=== PATIENT | female | born 1995 | race Caucasian/White ===

== ENCOUNTER 2018-09-02 21:07 | Emergency (ER) | payer BC ==
[2018-09-02 21:13] VITALS: BP 131/77; RESP 18; TEMP 98.3
--- NOTE | 2018-09-02 21:45 | ED ---
URI HPI - General Chief Complaint: Upper Respiratory Infection Stated Complaint: CARLOS Time Seen by Provider: 09/02/18 21:16 Source: patient Mode of arrival: ambulatory Limitations: no limitations - History of Present Illness MD Complaint: cough, nasal congestion, other (Chest tightness) -: days(s) Severity: moderate Quality: other (Diagnosis) Consistency: constant Improves With: nothing Worsens With: nothing Associated Symptoms: nasal congestion, cough, chest pain, shortness of breath Treatments Prior to Arrival: none - Related Data Home Medications Medication Instructions Recorded Confirmed Acetaminophen [Tylenol] 500 mg PO Q4-6H PRN 09/02/18 09/02/18 Pnv,Calcium 72/Iron/Folic Acid 1 tab PO DAILY 09/02/18 09/02/18 [ Plus Tablet] Previous Rx's Medication Instructions Recorded Albuterol Inhaler [Ventolin Hfa 1 - 2 puff INHALATION Q6HR PRN #1 09/02/18 Inhaler] inhaler Allergies Allergy/AdvReac Type Severity Reaction Status Date / Time No Known Allergies Allergy Verified 09/02/18 21:36 Review of Systems ROS Statement: Those systems with pertinent positive or pertinent negative responses have been documented in the HPI. ROS Other: All systems not noted in ROS Statement are negative. Constitutional: Denies: fever, chills Eyes: Denies: eye pain ENT: Reports: congestion. Denies: ear pain Respiratory: Reports: cough, wheezes Cardiovascular: Denies: chest pain, palpitations, edema, syncope Gastrointestinal: Denies: abdominal pain, vomiting, diarrhea Genitourinary: Denies: dysuria, hematuria Skin: Denies: rash Neurological: Denies: headache, weakness, numbness Past Medical History Past Medical History: No Reported History History of Any Multi-Drug Resistant Organisms: None Reported Past Surgical History: No Surgical Hx Reported Past Psychological History: No Psychological Hx Reported Smoking Status: Never smoker Past Alcohol Use History: None Reported Past Drug Use History: None Reported General Exam Limitations: no limitations General appearance: alert, in no apparent distress Head exam: Present: atraumatic, normocephalic Eye exam: Present: normal appearance. Absent: scleral icterus, conjunctival injection ENT exam: Present: normal oropharynx, TM's normal bilaterally Neck exam: Present: normal inspection, full ROM. Absent: meningismus, lymphadenopathy Respiratory exam: Present: wheezes. Absent: respiratory distress, rales, rhonchi, stridor Cardiovascular Exam: Present: regular rate (Rate is 96 at my exam), normal rhythm, normal heart sounds. Absent: systolic murmur, diastolic murmur, rubs, gallop GI/Abdominal exam: Present: soft. Absent: tenderness, guarding, rebound, mass Extremities exam: Present: normal inspection, normal capillary refill. Absent: pedal edema, calf tenderness Skin exam: Present: warm, dry, intact, normal color. Absent: rash Course Vital Signs 09/02/18 09/02/18 09/02/18 21:10 22:07 22:19 Temperature 98.3 F Pulse Rate 111 H 102 H 115 H Respiratory 18 Rate Blood Pressure 131/77 O2 Sat by Pulse 98 Oximetry Disposition Clinical Impression: Upper respiratory infection, Reactive airway disease Disposition: HOME SELF-CARE Condition: Good Instructions: Upper Respiratory Infection (ED), Reactive Airways Disease (ED) Prescriptions: Albuterol Inhaler [Ventolin Hfa Inhaler] 1 - 2 puff INHALATION Q6HR PRN #1 inhaler PRN Reason: Wheezing Is patient prescribed a controlled substance at d/c from ED?: No Referrals: Otilio Webber MD [Primary Care Provider] - 1-2 days
[2018-09-02] MEDS ORDERED: ALBUTEROL NEBULIZED 2.5 MG/3 ML INHALATION STA ×2 (21:50→22:26)
[2018-09-02 22:20] VITALS: PULSE 115
== END 2018-09-02 22:56 | disposition home or self-care (01) ==
LOC: EC 21:07
DX: O99.511 Diseases of the respiratory system complicating pregnancy, first trimester (principal); J45.909 Unspecified asthma, uncomplicated; J06.9 Acute upper respiratory infection, unspecified; Z3A.09 9 weeks gestation of pregnancy
CPT/HCPCS: 94640; 99284

== ENCOUNTER 2019-04-02 19:58 | Inpatient (IN) | payer BC, OTHER ==
[2019-04-02] MEDS ORDERED: METHYLERGONOVINE 0.2 MG/ML 1 ML AMP IM PRN (20:38)
[2019-04-02] MEDS ORDERED: CARBOPROST TROMETHAMINE 250 MCG/ML 1 ML AMP IM PRN (20:38)
[2019-04-02] MEDS ORDERED: TERBUTALINE 1 MG/ML VIAL SQ PRN (20:38)
[2019-04-02] MEDS ORDERED: LIDOCAINE 0.5% (PF) 5 MG/ML (50 ML SDV) SQ PRN (20:38)
[2019-04-02] MEDS ORDERED: OXYTOCIN 10 UNIT/ML 1 ML VIAL IM PRN (20:38)
[2019-04-02] MEDS ORDERED: LACTATED RINGERS 1,000 ML IV SCH (20:45)
[2019-04-02 21:07] VITALS: RESP 16; BMI 28.0
[2019-04-02] MEDS: LACTATED RINGERS 1,000 ML IV SCH (21:45)
[2019-04-02 22:02] LABS: Basophils % (A) 0 %; Eosinophils # (A) 0.2 k/uL (0-0.7); Eosinophils % (A) 2 %; HCT 35.4 % (34.0-46.0); HGB 11.7 gm/dL (11.4-16.0); Lymphocytes # (A) 0.9 k/uL (1.0-4.8); Lymphocytes % (A) 8 %; MCH 30.5 pg (25.0-35.0); MCHC 33.1 g/dL (31.0-37.0); MCV 92.4 fL (80.0-100.0); Monocytes # (A) 0.8 k/uL (0-1.0); Monocytes % (A) 7 %; Neutrophils # (A) 9.1 k/uL (1.3-7.7); Neutrophils % (A) 81 %; Platelet Count 264 k/uL (150-450); RBC 3.83 m/uL (3.80-5.40); RDW 13.5 % (11.5-15.5); WBC 11.3 k/uL (3.8-10.6)
[2019-04-03] MEDS: BUTORPHANOL 1 MG/ML 1 ML VIAL IV PRN ×2 (00:38→03:35)
[2019-04-03] MEDS: LACTATED RINGERS 1,000 ML IV SCH ×2 (04:56→19:49)
[2019-04-03] MEDS ORDERED: AMPICILLIN 2,000 MG in SODIUM CHLORIDE 0.9% 100 ML IVPB STA (06:04)
[2019-04-03] MEDS ORDERED: OXYTOCIN 30 UNITS/500 ML NS 30 UNIT in SALINE 1 500ML.BAG IV SCH (06:15)
[2019-04-03] MEDS ORDERED: SODIUM CHLORIDE 0.9% 100 ML BAG ONE (07:39)
[2019-04-03] MEDS ORDERED: fentaNYL (PF) 50 MCG/ML 5 ML AMP ONE (07:39)
[2019-04-03] MEDS ORDERED: ROPIVACAINE 5MG/ML 20ML VIAL ONE (07:39)
--- NOTE | 2019-04-03 08:13 | P.HPOB ---
History of Present Illness H&P Date: 04/03/19 Chief Complaint: IUP @ 39 4/7 weeks, labor This is a 24-year-old 1 para 0 at 39-4/7 weeks with an estimated due date of 04/06/19 based on last menstrual period equal to a 19 week ultrasound. Patient has been receiving routine care with Dr. Wilson. She pre sented to labor and delivery last evening with complaints of contractions every 2 minutes. Patient denied loss of fluid but noted mucousy discharge yesterday. Patient noted good movement and denied vaginal bleeding. On blood work she had a blood type of A-, rubella was noted to be nonimmune, RPR nonreactive, hepatitis B surface antigen negative, HIV negative, she did pass her 1 hour Glucola received T On 02/10/19 receive program on 01/13/19 group beta strep was negative on 03/03/19. Review of Systems Constitutional: Denies chills, Denies fatigue, Denies fever Ears, nose, mouth and throat: Denies headache Cardiovascular: Reports edema Respiratory: Denies dyspnea Gastrointestinal: Denies nausea, Denies vomiting Genitourinary: Reports Past Medical History Past Medical History: No Reported History History of Any Multi-Drug Resistant Organisms: None Reported Past Surgical History: No Surgical Hx Reported Additional Past Surgical History / Comment(s): [place] teeth Past Anesthesia/Blood Transfusion Reactions: No Reported Reaction Past Psychological History: No Psychological Hx Reported Smoking Status: Never smoker Past Alcohol Use History: None Reported Past Drug Use History: None Reported - Past Family History Mother Family Medical History: Blood Disorder Additional [facility] / Comment([facility] Medications and Allergies Home Medications Medication Instructions Recorded Confirmed Type Pnv,Calcium 72/Iron/Folic Acid 1 tab PO DAILY 09/02/18 04/02/19 History [ Plus Tablet] Allergies Allergy/AdvReac Type Severity Reaction Status Date / Time No Known Allergies Allergy Verified 09/02/18 21:36 Exam Osteopathic Statement: *. No significant issues noted on an osteopathic structural exam other than those noted in the History and Physical/Consult. Vital Signs Temp Pulse Resp BP Pulse Ox 04/02/19 21:01 96.5 F L 112 H 16 131/89 98 04/02/19 20:33 96.5 F L 112 H 16 131/89 98 Intake and Output 04/02/19 04/03/19 04/03/19 22:59 06:59 14:59 Intake Total 1000 Balance 1000 Intake: IV 1000 Lactated Ringers 1,000 ml 1000 @ 125 mls/hr IV .Q8H [facility] Rx#:[id number] Other: # Voids 1 1 Weight 88.587 kg Targeted physical exam was performed on this date in general this is a well- nourished well-developed female in no acute distress, she exhibits non- labored breathing, lungs are clear to auscultation. Heart is known to have a regular rate and rhythm, her abdomen is noted to be gravid and appropriate for gestational age, and cervical exam she was 6/100/-2 with a bulging bag of water, amniotomy was performed and clear fluid was obtained. heart tones were noted to be category 1 and she was selene every 5 minutes. Results Result Diagrams: 04/02/19 21:46 Abnormal Lab Results - Last 24 Hours (Table) 04/02/19 Range/Units 21:46 WBC 11.3 H (3.8-10.6) k/uL Neutrophils # 9.1 H (1.3-7.7) k/uL Lymphocytes # 0.9 L (1.0-4.8) k/uL Assessment and Plan (1) Term Current Visit: Yes Status: Acute Code(s): Z34.90 - ENCNTR FOR SUPRVSN OF NORMAL , UNSP, UNSP TRIMESTER SNOMED Code(s): 91829587 (2) Active labor at term Current Visit: Yes Status: Acute Code(s): QGM9773 - SNOMED Code(s): 65154815 (3) Rubella non-immune status, antepartum Current Visit: Yes Status: Acute Code(s): O99.89 - OTH DISEASES AND CO NDITIONS COMPL PREG/CHLDBRTH; Z28.3 - UNDERIMMUNIZATION STATUS SNOMED Code(s): 363403957 (4) Rh negative state in antepartum period Current Visit: Yes Status: Acute Code(s): O26.899 - OTH RELATED CONDITIONS, UNSPECIFIED TRIMESTER; Z67.91 - UNSPECIFIED BLOOD TYPE, RH NEGATIVE SNOMED Code(s): 920172121 Plan: Patient is admitted to labor and delivery, Pitocin augmentation of labor was begun and amniotomy was performed as stated above. Patient will receive MMR post and rhogam as indicated by cord blood. Anticipate spontaneous vaginal delivery later this morning.
[2019-04-03] MEDS ORDERED: AMPICILLIN 1,000 MG in SODIUM CHLORIDE 0.9% 50 ML IVPB SCH (10:00)
[2019-04-03] MEDS ORDERED: ZOLPIDEM 5 MG TAB PO PRN (11:01)
[2019-04-03] MEDS ORDERED: BENZOCAINE/MENTHOL SPRAY 1 GM/SPRAY AEROSOL TOPICAL PRN (11:01)
[2019-04-03] MEDS ORDERED: WITCH HAZEL 1 EACH MED..PAD TOPICAL PRN (11:01)
[2019-04-03] MEDS ORDERED: HYDROcodone/APAP 5-325MG 1 EACH TAB PO PRN (11:01)
[2019-04-03] MEDS ORDERED: diphenhydrAMINE 50 MG CAP PO PRN (11:01)
[2019-04-03] MEDS ORDERED: HYDROCORTISONE 2.5% RECTAL CREAM 30 GM TUBE RECTAL PRN (11:01)
[2019-04-03] MEDS ORDERED: IBUPROFEN 600 MG TAB PO PRN (11:01)
[2019-04-03] MEDS ORDERED: diphenhydrAMINE 25 MG CAP PO PRN (11:01)
[2019-04-03] MEDS ORDERED: diphenhydrAMINE 50 MG/ML 1 ML VIAL IVP PRN ×2 (11:01)
[2019-04-03] MEDS ORDERED: SIMETHICONE 80 MG CHEWABLE PO PRN (11:01)
[2019-04-03] MEDS ORDERED: LANOLIN CREAM 5 GM TUBE TOPICAL PRN (11:01)
[2019-04-03] MEDS ORDERED: ACETAMINOPHEN TAB 325 MG TAB PO PRN (11:01)
--- NOTE | 2019-04-03 11:06 | P.PROBDLV ---
Vaginal Delivery Note - . Vaginal Delivery Note: This is a pleasant 24-year-old 1 para 0 that presented to labor and delivery in active labor at 39-4/7 weeks. Patient was admitted to labor and delivery made minimal progress over the evening therefore Pitocin augmentation of labor was begun. Patient was noted to have a family positive amnio sure upon admission in addition. Pitocin augmentation of labor was begun and amniotomy was performed clear fluid was obtained she progressed to 6 cm by this time. Pat ient request epidural which was placed without difficulty by the anesthesia department. Patient progressed to complete began pushing and had a normal spontaneous vaginal delivery of a viable female infant (sam) at 1040, loose nuchal was noted at delivery and this was delivered through. Weight of 7 lbs. 15 oz. with Apgars of 8 and 9 at one and 5 minutes respectively. After a two- minute delayed the vocal cord is then doubly clamped and cut. The placenta was then delivered spontaneously intact with a three-vessel cord being noted. A red rubber catheter was used to drain the bladder of approximately 150 mL of clear yellow urine. The uterus was noted to be firm and below the lump umbilicus at this time. Estimated blood loss 300 mL. Inspection the patient's vaginal vault a second-degree midline vaginal laceration was noted this was repaired in the usual fashion with 3-0 Rapide. A right labial laceration was noted very superficial this was not repaired and it was not bleeding. Patient and tolerated delivery well and are resting comfortably.
[2019-04-03] MEDS ORDERED: OXYTOCIN 20 UNITS/1000 ML NS 1,000 ML IV SCH (11:15)
[2019-04-03] MEDS ORDERED: MEASLES-MUMPS-RUBELLA VACC/PF 12,500 UNIT/0.5 ML VIAL SQ ONE (19:48)
[2019-04-03] MEDS: SENNOSIDES-DOCUSATE SODIUM 1 EACH TAB PO SCH ×2 (20:32→20:42)
--- NOTE | 2019-04-04 07:56 | P.DS ---
Providers Date of admission: 04/02/19 20:31 Expected date of discharge: 04/04/19 Attending physician: Nikko Wilson Primary care physician: Stated None - Discharge Diagnosis(es) (1) Term Current Visit: Yes Status: Acute (2) Active labor at term Current Visit: Yes Status: Acute (3) Rubella non-immune status, antepartum Current Visit: Yes Status: Acute (4) Rh negative state in antepartum period Current Visit: Yes Status: Acute (5) Status post vaginal delivery Current Visit: Yes Status: Acute Hospital Course: This is a pleasant 24-year-old 1 para 0 that presented to labor and delivery with regular strong contractions at 39-4/7 weeks. Patient was admitted patient made minimal progress and Pitocin augmentation of labor was begun. Patient underwent artificial rupture of membranes progressed quickly to complete began pushing and had a normal spontaneous vaginal delivery of a viable female at 1040, ([place]) a loose nuchal is noted at delivery and this was delivered through without difficulty. Weight of the 7 lbs. 15 oz. with Apgars of 8 and 9 at one and 5 minutes respectively. Patient did sustain a second-degree midline vaginal laceration that was repaired in the usual fashion with 3-0 Rapide. Patient's course has been uneventful. On this day #1 she is ambulating and voiding without difficulty. She is tolerating a regular diet without nausea or vomiting. She denies any concerns and does wish discharge home at 24 hours. She is bottle feeding in addition. Patient Condition at Discharge: Good Plan - Discharge Summary New Discharge Prescriptions: No Action Pnv,Calcium 72/Iron/Folic Acid [ Plus Tablet] 1 tab PO DAILY Discharge Medication List Pnv,Calcium 72/Iron/Folic Acid [ Plus Tablet] 1 tab PO DAILY 09/02/18 [History] Follow up Appointment(s)/Referral(s): Nikko Wilson MD [STAFF PHYSICIAN] - 6 Weeks Patient Instructions/Handouts: Vaginal Delivery (DC), Vaginal Delivery (GEN) Discharge Disposition: HOME SELF-CARE
[2019-04-04] MEDS: SENNOSIDES-DOCUSATE SODIUM 1 EACH TAB PO SCH (08:56)
[2019-04-04 08:57] VITALS: BP 114/63; PULSE 85; TEMP 97.6
[2019-04-04 08:57] LABS: Basophils # (A) 0.1 k/uL (0-0.2); Basophils % (A) 0 %; Eosinophils # (A) 0.3 k/uL (0-0.7); Eosinophils % (A) 2 %; HCT 30.8 % (34.0-46.0); HGB 10.2 gm/dL (11.4-16.0); Lymphocytes # (A) 1.6 k/uL (1.0-4.8); Lymphocytes % (A) 13 %; MCH 31.1 pg (25.0-35.0); MCHC 32.9 g/dL (31.0-37.0); MCV 94.4 fL (80.0-100.0); Mean Platelet Volume 7.6; Monocytes # (A) 0.7 k/uL (0-1.0); Monocytes % (A) 5 %; Neutrophils # (A) 9.6 k/uL (1.3-7.7); Neutrophils % (A) 77 %; Platelet Count 226 k/uL (150-450); RBC 3.27 m/uL (3.80-5.40); RDW 14.1 % (11.5-15.5); WBC 12.5 k/uL (3.8-10.6)
[2019-04-04] MEDS ORDERED: PRENATAL VIT-IRON-FOLIC ACID 1 EACH CAP PO SCH (09:00)
== END 2019-04-04 15:20 | disposition home or self-care (01) | DRG 807 ==
LOC: FBPOP 19:58 → 4FBP 20:31
PROVIDERS: ADMIT Obstetrics & Gynecology Obstetrics; ATTEND Obstetrics & Gynecology
PROC: 10E0XZZ Delivery of Products of Conception, External Approach (ICD-10-PCS; principal; 2019-04-03)
PROC: 0KQM0ZZ Repair Perineum Muscle, Open Approach (ICD-10-PCS; 2019-04-03)
PROC: 3E0134Z Introduction of Serum, Toxoid and Vaccine into Subcutaneous Tissue, Percutaneous Approach (ICD-10-PCS; 2019-04-03)
PROC: 00HU33Z Insertion of Infusion Device into Spinal Canal, Percutaneous Approach (ICD-10-PCS; 2019-04-03)
PROC: 3E0R3BZ Introduction of Anesthetic Agent into Spinal Canal, Percutaneous Approach (ICD-10-PCS; 2019-04-03)
DX: O69.81X0 Labor and delivery complicated by cord around neck, without compression, not applicable or unspecified (principal); Z37.0 Single live birth; O26.893 Other specified pregnancy related conditions, third trimester; O70.1 Second degree perineal laceration during delivery; Z3A.39 39 weeks gestation of pregnancy; Z67.41 Type O blood, Rh negative; Z23 Encounter for immunization; Z79.899 Other long term (current) drug therapy
CPT/HCPCS: 59025; 84112; 85025; 86850; 86900; 86901; 90707; 99213

== ENCOUNTER 2021-02-18 17:41 | Emergency (ER) | payer BC, OTHER ==
[2021-02-18 17:45] VITALS: TEMP 98.3
[2021-02-18] MEDS ORDERED: IPRATROPIUM-ALBUTEROL 3 ML NEB INHALATION STA (18:01)
[2021-02-18] MEDS ORDERED: predniSONE 20 MG TAB PO STA (18:02)
--- NOTE | 2021-02-18 18:35 | ED ---
SOB HPI - General Chief Complaint: Shortness of Breath Stated Complaint: SOB Time Seen by Provider: 02/18/21 17:52 Source: patient Mode of arrival: ambulatory Limitations: no limitations - History of Present Illness Initial Comments: Is a 26-year-old female who presents emergent upper for shortness of breath. She states it started yesterday. She states it feels constant and it feels difficult to get a full breath of air in. She admits to a slight cough as well. No fevers or chills. No chest pain. No lower extremity pain or swelling. No history of PE or DVT however the patient is on control and her mother has a history of DTs. Patient states that she's had some similar in the past that she was prescribed an albuterol inhaler and steroids with improvement. She denies any history of asthma currently. She denies any other complaints at this time. - Related Data Home Medications Medication Instructions Recorded Confirmed Etonogestrel [Nexplanon] 68 mg SQ ONCE 02/18/21 02/18/21 Previous Rx's Medication Instructions Recorded Albuterol Inhaler [Ventolin Hfa 1 puff INHALATION RT-QID PRN #1 02/18/21 Inhaler] inhaler predniSONE 50 mg PO DAILY #5 tab 02/18/21 Allergies Allergy/AdvReac Type Severity Reaction Status Date / Time No Known Allergies Allergy Verified 02/18/21 18:37 Review of Systems ROS Statement: Those systems with pertinent positive or pertinent negative responses have been documented in the HPI. ROS Other: All systems not noted in ROS Statement are negative. Past Medical History Past Medical History: No Reported History History of Any Multi-Drug Resistant Organisms: None Reported Past Surgical History: No Surgical Hx Reported Additional Past Surgical History / Comment(s): [place] teeth Past Anesthesia/Blood Transfusion Reactions: No Reported Reaction Past Psychological History: No Psychological Hx Reported Smoking Status: Never smoker Past Alcohol Use History: Occasional Past Drug Use History: None Reported - Past Family History Mother Family Medical History: Blood Disorder Additional Family Medical History / Comment(s): [facility] General Exam - General Exam Comments Initial Comments: Constitutional: Awake alert Appears comfortable Head: Normocephalic atraumatic Eyes: no conjunctival injection No scleral icterus EOMI Neck: No JVD Supple Heart: Regular rate rhythm normal S1-S2 no murmurs Lungs: Bilateral expiratory wheezes No rales Abdomen: Soft nondistended nontender Extremities: Non edematous DP pulses intact Radial pulses intact Neuro: A&Ox3 No focal neurologic deficits Psych: Appropriate mood and affect Limitations: no limitations Course Vital Signs 02/18/21 02/18/21 02/18/21 17:42 18:33 18:39 Temperature 98.3 F Pulse Rate 110 H 70 72 Respiratory 18 18 20 Rate Blood Pressure 151/96 O2 Sat by Pulse 98 99 Oximetry 02/18/21 19:26 Temperature 98.3 F Pulse Rate 72 Respiratory 18 Rate Blood Pressure 136/87 O2 Sat by Pulse 99 Oximetry - Reevaluation(s) Reevaluation #1: EKG showing normal sinus rhythm with rate of 96. No abnormal ST 7 changes or T- wave or very QTC is 442. Other intervals normal. No ectopy. 02/18/21 18:35 Medical Decision Making - Medical Decision Making Is a 26-year-old female who presents emergency department for shortness of breath. The patient did have bilateral wheezes on examination however did not appear to be any respiratory distress. She had normal vital signs on arrival. She was given a breathing treatment and also steroids while emergency report. Chest x-ray was unremarkable. Blood work is obtained and unremarkable. D-dimer negative. The patient had an EKG that was also normal. The patient stated that she felt improved after breathing treatment. She's recently with an inhaler and steroids. To follow up closely with her primary doctor. Return emergency Department his worsening or changing of her symptoms. All cautions were answered. - Lab Data Result diagrams: 02/18/21 18:36 02/18/21 18:36 Lab Results 02/18/21 02/18/21 02/18/21 Range/Units 18:36 18:36 18:36 WBC 9.8 (3.8-10.6) k/uL RBC 4.17 (3.80-5.40) m/uL Hgb 12.8 (11.4-16.0) gm/dL Hct 37.7 (34.0-46.0) % MCV 90.3 (80.0-100.0) fL MCH 30.7 (25.0-35.0) pg MCHC 34.0 (31.0-37.0) g/dL RDW 12.7 (11.5-15.5) % Plt Count 309 (150-450) k/uL MPV 7.4 Neutrophils % 72 % Lymphocytes % 15 % Monocytes % 6 % Eosinophils % 6 % Basophils % 1 % Neutrophils # 7.0 (1.3-7.7) k/uL Lymphocytes # 1.5 (1.0-4.8) k/uL Monocytes # 0.5 (0-1.0) k/uL Eosinophils # 0.6 (0-0.7) k/uL Basophils # 0.1 (0-0.2) k/uL D-Dimer 0.38 (<0.60) mg/L FEU Sodium 141 (137-145) mmol/L Potassium 4.1 (3.5-5.1) mmol/L Chloride 108 H (98-107) mmol/L Carbon Dioxide 26 (22-30) mmol/L Anion Gap 7 mmol/L BUN 13 (7-17) mg/dL Creatinine 0.67 (0.52-1.04) mg/dL Est GFR (CKD-EPI)AfAm >90 (>60 ml/min/1.73 sqM) Est GFR (CKD-EPI)NonAf >90 (>60 ml/min/1.73 sqM) Glucose 80 (74-99) mg/dL Calcium 9.4 (8.4-10.2) mg/dL Total Bilirubin 0.3 (0.2-1.3) mg/dL AST 22 (14-36) U/L ALT 11 (4-34) U/L Alkaline Phosphatase 67 (38-126) U/L Total Protein 7.3 (6.3-8.2) g/dL Albumin 4.2 (3.5-5.0) g/dL Disposition Clinical Impression: Bronchitis Disposition: HOME SELF-CARE Condition: Stable Instructions (If sedation given, give patient instructions): Acute Bronchitis (ED) Prescriptions: predniSONE 50 mg PO DAILY #5 tab Albuterol Inhaler [Ventolin Hfa Inhaler] 1 puff INHALATION RT-QID PRN #1 inhaler PRN Reason: Shortness Of Breath Is patient prescribed a controlled substance at d/c from ED?: No Referrals: Otilio Webber MD [Primary Care Provider] - 1-2 days
--- NOTE | 2021-02-18 18:40 | XR ---
EXAMINATION TYPE: XR chest 2V DATE OF EXAM: 02/18/2021 COMPARISON: 12/13/2012 HISTORY: Short of breath TECHNIQUE: FINDINGS: Heart and mediastinum are normal. The lungs appear clear of infiltrate. There is no pleural effusion. There are no hilar masses. Costophrenic angles are clear. Bony thorax is intact. There are chest leads. IMPRESSION: Normal chest. No change.
[2021-02-18 18:43] LABS: Basophils # (A) 0.1 k/uL (0-0.2); Basophils % (A) 1 %; Eosinophils # (A) 0.6 k/uL (0-0.7); Eosinophils % (A) 6 %; HCT 37.7 % (34.0-46.0); HGB 12.8 gm/dL (11.4-16.0); Lymphocytes # (A) 1.5 k/uL (1.0-4.8); Lymphocytes % (A) 15 %; MCH 30.7 pg (25.0-35.0); MCV 90.3 fL (80.0-100.0); Mean Platelet Volume 7.4; Monocytes # (A) 0.5 k/uL (0-1.0); Monocytes % (A) 6 %; Neutrophils % (A) 72 %; Platelet Count 309 k/uL (150-450); RBC 4.17 m/uL (3.80-5.40); RDW 12.7 % (11.5-15.5); WBC 9.8 k/uL (3.8-10.6)
[2021-02-18 18:48] VITALS: PULSE 72; RESP 18
[2021-02-18 18:57] LABS: ALT 11 U/L (4-34); AST 22 U/L (14-36); African American GFR (CKD) >90 (>60 ml/min/1.73 sqM); Albumin 4.2 g/dL (3.5-5.0); Alkaline Phosphatase 67 U/L (38-126); Anion Gap 7 mmol/L; Blood Urea Nitrogen 13 mg/dL (7-17); Calcium 9.4 mg/dL (8.4-10.2); Carbon Dioxide 26 mmol/L (22-30); Chloride 108 mmol/L (98-107); Glucose 80 mg/dL (74-99); Non-African American GFR(CKD) >90 (>60 ml/min/1.73 sqM); Potassium 4.1 mmol/L (3.5-5.1); Sodium 141 mmol/L (137-145); Total Bilirubin 0.3 mg/dL (0.2-1.3); Total Protein 7.3 g/dL (6.3-8.2)
[2021-02-18 19:27] VITALS: BP 136/87
== END 2021-02-18 19:26 | disposition home or self-care (01) ==
LOC: EC 17:41
DX: J40 Bronchitis, not specified as acute or chronic (principal)
CPT/HCPCS: 36415; 94640; 85379; 80053; 85025; 71046; 99284; J7512; 93005

== ENCOUNTER 2022-02-08 20:00 | Emergency (ER) | payer BC, OTHER ==
[2022-02-08 20:04] VITALS: TEMP 97.5
[2022-02-08 20:49] LABS: Basophils # (A) 0.1 k/uL (0-0.2); Basophils % (A) 1 %; Eosinophils # (A) 0.4 k/uL (0-0.7); Eosinophils % (A) 5 %; HCT 41.3 % (34.0-46.0); HGB 13.9 gm/dL (11.4-16.0); Lymphocytes # (A) 1.6 k/uL (1.0-4.8); Lymphocytes % (A) 21 %; MCH 31.5 pg (25.0-35.0); MCHC 33.6 g/dL (31.0-37.0); MCV 93.6 fL (80.0-100.0); Mean Platelet Volume 7.5; Monocytes # (A) 0.5 k/uL (0-1.0); Monocytes % (A) 6 %; Neutrophils # (A) 5.2 k/uL (1.3-7.7); Neutrophils % (A) 66 %; Platelet Count 348 k/uL (150-450); RBC 4.41 m/uL (3.80-5.40); RDW 12.9 % (11.5-15.5); WBC 7.8 k/uL (3.8-10.6)
[2022-02-08] MEDS ORDERED: SODIUM CHLORIDE 0.9% 1,000 ML IV ONE (20:49)
[2022-02-08 21:01] LABS: ALT 14 U/L (4-34); AST 19 U/L (14-36); African American GFR (CKD) >90 (>60 ml/min/1.73 sqM); Albumin 4.6 g/dL (3.5-5.0); Alkaline Phosphatase 67 U/L (38-126); Anion Gap 10 mmol/L; Blood Urea Nitrogen 9 mg/dL (7-17); Calcium 9.4 mg/dL (8.4-10.2); Carbon Dioxide 22 mmol/L (22-30); Chloride 107 mmol/L (98-107); Glucose 93 mg/dL (74-99); Non-African American GFR(CKD) >90 (>60 ml/min/1.73 sqM); Potassium 3.8 mmol/L (3.5-5.1); Sodium 139 mmol/L (137-145); Total Bilirubin 0.6 mg/dL (0.2-1.3); Total Protein 8.2 g/dL (6.3-8.2)
[2022-02-08 21:06] LABS: INR 1.1 (<1.2); Partial Thromboplastin Time 22.8 sec (22.0-30.0); Prothrombin Time 11.6 sec (9.0-12.0)
--- NOTE | 2022-02-08 22:00 | CT ---
EXAMINATION TYPE: CT abdomen pelvis w con CT DLP: 753.7 mGycm, Automated exposure control for dose reduction was used. DATE OF EXAM: 02/08/2022 9:48 PM COMPARISON: None CLINICAL INDICATION:Female, 27 years old with history of abd pain, mono positive; abd pain positive f or mono TECHNIQUE: Standard CT of the abdomen and pelvis following the administration of 100 cc of Isovue 3 00 IV contrast material. Coronal and sagittal reformats were performed. FINDINGS: LOWER CHEST: Unremarkable ABDOMEN LIVER: Unremarkable GALLBLADDER AND BILE DUCTS: Unremarkable. PANCREAS: Unremarkable. SPLEEN: Not enlarged measuring up to 12.2 cm. ADRENAL GLANDS: Unremarkable. KIDNEYS AND URETERS: No evidence of hydronephrosis or obstructing renal calculus in the left lower po le measuring 10 mm. The ureters are unremarkable. PELVIS BLADDER: Unremarkable REPRODUCTIVE: Left slightly complicated ovarian cyst measuring 47 x 41 mm. Tampon seen within the vag wan. ABDOMEN & PELVIS STOMACH AND BOWEL: No evidence of bowel obstruction. The appendix is visualized and within normal villarreal its. PERITONEUM: No evidence of pneumoperitoneum or free fluid. VASCULATURE: No evidence of aortic aneurysm. MUSCULOSKELETAL: No acute osseous abnormalities LYMPH NODES: No gross evidence for lymphadenopathy. SOFT TISSUE/ABDOMINAL WALL: Unremarkable IMPRESSION: 1. No evidence for acute intracranial process. No evidence for splenomegaly. 2. Left ovarian cyst with septation measuring up to 47 mm. Further evaluation with pelvic ultrasound attention to the left ovary is recommended. 3. Left nonobstructing renal calculus.
[2022-02-08 22:14] VITALS: BP 118/76; PULSE 84; RESP 16
--- NOTE | 2022-02-08 23:19 | US ---
EXAMINATION TYPE: US transvaginal DATE OF EXAM: 02/08/2022 COMPARISON: CT 2021 CLINICAL HISTORY: abd pain, large left ovarian cyst. Left ovarian cyst seen on CT TECHNIQUE: Transvaginal ER exam Date of LMP: 02/05/2022 EXAM MEASUREMENTS: Uterus: 7.9 x 3.6 x 4.8 cm Endometrial Stripe: 0.4 cm Right Ovary: 2.0 x 1.2 x 2.2 cm Left Ovary: 5.4 x 4.1 x 5.3 cm 1. Uterus: wnl 2. Endometrium: wnl 3. Right Ovary: wnl 4. Left Ovary: 4.5 x 3.5 x 3.0cm septated cystic area Spectral, color and waveform doppler imaging shows good arterial and venous flow within the ovaries ; there is no evidence for ovarian torsion. 5. Bilateral Adnexa: wnl 6. Posterior cul-de-sac: wnl IMPRESSION: There is large septated left ovarian cyst. No solid adnexal mass. Normal uterus. No evidence of ovari an torsion.
--- NOTE | 2022-02-08 23:44 | ED ---
Abdominal Pain HPI - General Chief Complaint: Abdominal Pain Stated Complaint: Abdominal Pain, Difficulty Breathing Source: patient Mode of arrival: ambulatory Limitations: no limitations - History of Present Illness Initial Comments: 27-year-old female presents emergency Department with reported left upper quadrant abdominal pain. States that she has had a sore throat and fatigue over the past 3 days. She went into an urgent clinic I diagnosed her with mono today. She was told that if she had any abdominal pain she needed to come to the hospital. Patient states that after she got home she began having some generalized abdominal discomfort. Mom was concerned as the patient's brother had mono and splenomegaly, almost required removal. Patient describes the stomach pain as a dull ache. No associated urinary symptoms. No black or bloody stools. Patient currently on her menstrual cycle. No concern for sexually transmitted infections. No other alleviating, precipitating or modifying factors - Related Data Home Medications Medication Instructions Recorded Confirmed Etonogestrel [Nexplanon] 68 mg SQ DIRECTED 02/18/21 02/08/22 Dextroamphetamine/Amphetamine 10 mg PO BID 02/08/22 02/08/22 [Adderall] Triamcinolone 0.1% Cream [Kenalog 1 applic TOPICAL BID 02/08/22 02/08/22 0.1% Cream] Allergies Allergy/AdvReac Type Severity Reaction Status Date / Time No Known Allergies Allergy Verified 02/08/22 20:32 Review of Systems ROS Statement: Those systems with pertinent positive or pertinent negative responses have been documented in the HPI. ROS Other: All systems not noted in ROS Statement are negative. Past Medical History Past Medical History: No Reported History History of Any Multi-Drug Resistant Organisms: None Reported Past Surgical History: No Surgical Hx Reported Additional Past Surgical History / Comment(s): [place] teeth Past Anesthesia/Blood Transfusion Reactions: No Reported Reaction Past Psychological History: No Psychological Hx Reported Smoking Status: Never smoker Past Alcohol Use History: Occasional Past Drug Use History: None Reported - Past Family History Mother Family Medical History: Blood Disorder Additional Family Medical History / Comment(s): MTFHR General Exam Limitations: no limitations Course Vital Signs 02/08/22 02/08/22 20:01 22:13 Temperature 97.5 F L Pulse Rate 89 84 Respiratory 20 16 Rate Blood Pressure 127/88 118/76 O2 Sat by Pulse 100 100 Oximetry Medical Decision Making - Medical Decision Making Upon arrival patient was placed into room 8. A thorough history and physical exam was performed. Laboratory says her conducted. Patient does go over for CT which does not demonstrate any signs of splenomegaly. She does have a large left-sided ovarian cyst for which a transvaginal ultrasound is performed. Demonstrates large septated left ovarian cyst however there is good arterial and venous flow. Patient resting comfortably in bed without any pain medications. Will be discharged home. He is to follow-up with her GUEST SERVICES ATTENDANT and have repeat ultrasound on for weeks to assess size of cyst. Please return for any new or worsening symptoms. Patient agreed to plan and was discharged in stable condition - Lab Data Result diagrams: 02/08/22 20:40 02/08/22 20:40 Lab Results 02/08/22 02/08/22 02/08/22 Range/Units 20:40 20:40 20:40 WBC 7.8 (3.8-10.6) k/uL RBC 4.41 (3.80-5.40) m/uL Hgb 13.9 (11.4-16.0) gm/dL Hct 41.3 (34.0-46.0) % MCV 93.6 (80.0-100.0) fL MCH 31.5 (25.0-35.0) pg MCHC 33.6 (31.0-37.0) g/dL RDW 12.9 (11.5-15.5) % Plt Count 348 (150-450) k/uL MPV 7.5 Neutrophils % 66 % Lymphocytes % 21 % Monocytes % 6 % Eosinophils % 5 % Basophils % 1 % Neutrophils # 5.2 (1.3-7.7) k/uL Lymphocytes # 1.6 (1.0-4.8) k/uL Monocytes # 0.5 (0-1.0) k/uL Eosinophils # 0.4 (0-0.7) k/uL Basophils # 0.1 (0-0.2) k/uL PT 11.6 (9.0-12.0) sec INR 1.1 (<1.2) APTT 22.8 (22.0-30.0) sec Sodium 139 (137-145) mmol/L Potassium 3.8 (3.5-5.1) mmol/L Chloride 107 (98-107) mmol/L Carbon Dioxide 22 (22-30) mmol/L Anion Gap 10 mmol/L BUN 9 (7-17) mg/dL Creatinine 0.60 (0.52-1.04) mg/dL Est GFR (CKD-EPI)AfAm >90 (>60 ml/min/1.73 sqM) Est GFR (CKD-EPI)NonAf >90 (>60 ml/min/1.73 sqM) Glucose 93 (74-99) mg/dL Calcium 9.4 (8.4-10.2) mg/dL Total Bilirubin 0.6 (0.2-1.3) mg/dL AST 19 (14-36) U/L ALT 14 (4-34) U/L Alkaline Phosphatase 67 (38-126) U/L Total Protein 8.2 (6.3-8.2) g/dL Albumin 4.6 (3.5-5.0) g/dL Disposition Clinical Impression: Abdominal pain, Mononucleosis, Left ovarian cyst Disposition: HOME SELF-CARE Condition: Stable Instructions (If sedation given, give patient instructions): Mononucleosis (ED), Abdominal Pain (ED) Additional Instructions: Please follow-up with your GUEST SERVICES ATTENDANT in regards to your left ovarian cyst. They need to repeat an ultrasound 4 weeks. Return for any new or worsening symptoms Is patient prescribed a controlled substance at d/c from ED?: No Referrals: Otilio Webber MD [Primary Care Provider] - 1-2 days Ailsa Leach DO [Doctor of Osteopathic Medicine] - 1-2 days Time of Disposition: 23:43
== END 2022-02-08 23:51 | disposition home or self-care (01) ==
LOC: EC 20:00
DX: N83.202 Unspecified ovarian cyst, left side (principal); B27.90 Infectious mononucleosis, unspecified without complication
CPT/HCPCS: 36415; 80053; 85025; 85610; 85730; 93975; 76830; 74177; 99284; 96360; 96361 ×2; Q9967

== ENCOUNTER 2023-02-14 17:08 | Emergency (ER) | payer BC, OTHER ==
--- NOTE | 2023-02-14 18:00 | XR ---
EXAMINATION TYPE: XR chest 2V DATE OF EXAM: 02/14/2023 COMPARISON: 02/18/2021 HISTORY: Cough TECHNIQUE: 2 views FINDINGS: Heart is normal. Lungs are clear. Diaphragm is normal. Bony thorax is intact. IMPRESSION: Normal chest. No change.
[2023-02-14] MEDS ORDERED: ACETAMINOPHEN TAB 325 MG TAB PO STA (19:26)
[2023-02-14] MEDS ORDERED: IBUPROFEN 600 MG TAB PO STA (19:26)
[2023-02-14] MEDS ORDERED: IPRATROPIUM-ALBUTEROL 3 ML NEB INHALATION STA (19:29)
--- NOTE | 2023-02-14 19:30 | ED ---
General Adult HPI - General Chief complaint: Fever Stated complaint: fever Time Seen by Provider: 02/14/23 19:17 Source: patient, RN notes reviewed, old records reviewed Mode of arrival: ambulatory Limitations: no limitations - History of Present Illness Initial comments: This is a nontoxic-appearing 28-year-old female that presents to the emergency room with a one day of fever, cough, sore throat and body aches. No known sick contacts. No nausea vomiting diarrhea or abdominal pain. No medical history. States that she does vape. -: days(s) (1) Consistency: constant Improves with: none Associated Symptoms: cough, fever/chills, malaise, other (sore throat and body aches) Treatments Prior to Arrival: none - Related Data Home Medications Medication Instructions Recorded Confirmed Etonogestrel [Nexplanon] 68 mg SQ DIRECTED 02/18/21 02/08/22 Dextroamphetamine/Amphetamine 10 mg PO BID 02/08/22 02/08/22 [Adderall] Triamcinolone 0.1% Cream [Kenalog 1 applic TOPICAL BID 02/08/22 02/08/22 0.1% Cream] Previous Rx's Medication Instructions Recorded Albuterol Inhaler [Ventolin Hfa 1 - 2 puff INHALATION Q6H PRN #1 02/14/23 Inhaler] unit Allergies Allergy/AdvReac Type Severity Reaction Status Date / Time No Known Allergies Allergy Verified 02/14/23 17:38 Review of Systems ROS Statement: Those systems with pertinent positive or pertinent negative responses have been documented in the HPI. ROS Other: All systems not noted in ROS Statement are negative. Past Medical History Past Medical History: No Reported History History of Any Multi-Drug Resistant Organisms: None Reported Past Surgical History: No Surgical Hx Reported Additional Past Surgical History / Comment(s): [place] teeth Past Anesthesia/Blood Transfusion Reactions: No Reported Reaction Past Psychological History: No Psychological Hx Reported Smoking Status: Never smoker Past Alcohol Use History: Occasional Past Drug Use History: None Reported - Past Family History Mother Family Medical History: Blood Disorder Additional Family Medical History / Comment(s): MTFHR General Exam Limitations: no limitations General appearance: alert, in no apparent distress Head exam: Present: atraumatic, normocephalic Eye exam: Present: EOMI, conjunctival injection. Absent: scleral icterus, periorbital swelling, periorbital tenderness ENT exam: Present: mucous membranes moist Expanded Mouth exam: Present: tongue normal, tongue elevation. Absent: drooling, trismus, muffled voice Throat exam: tonsillomegaly. negative: tonsillar erythema, tonsillar exudate, R peritonsillar mass, L peritonsillar mass Neck exam: Present: full ROM. Absent: tenderness, meningismus, lymphadenopathy, thyromegaly Respiratory exam: Present: wheezes. Absent: respiratory distress, rales, rhonchi, stridor, chest wall tenderness, accessory muscle use Cardiovascular Exam: Present: tachycardia GI/Abdominal exam: Present: soft. Absent: distended, tenderness, guarding, rebound, rigid Extremities exam: Present: full ROM, normal capillary refill. Absent: pedal edema Back exam: Present: normal inspection. Absent: tenderness, CVA tenderness (R), CVA tenderness (L), muscle spasm, paraspinal tenderness, vertebral tenderness, rash noted Neurological exam: Present: alert, oriented X3 Psychiatric exam: Present: normal affect, normal mood Skin exam: Present: warm, dry, normal color. Absent: cyanosis, diaphoretic, petechiae, pallor Course Vital Signs 02/14/23 02/14/23 02/14/23 17:35 19:20 20:38 Temperature 99.8 F H 98.6 F 99.2 F Pulse Rate 135 H 107 H 76 Respiratory 20 18 16 Rate Blood Pressure 115/55 113/58 108/59 O2 Sat by Pulse 95 96 95 Oximetry Medical Decision Making - Medical Decision Making This is a nontoxic appearing female with URI symptoms, sore throat, bodyaches and fever that started today. Denies any chest pain, difficulty breathing, or abdominal pain. on physical examination is no evidence of lymphadenopathy, no tonsillar exudate or erythema, tympanic membranes are clear Chest x-ray interpreted by me shows no evidence of focal consolidation, trachea midline. Radiologist impression normal chest no change. Influenza, RSV and Covid swab negative. Patient was given Decadron, Tylenol, Motrin and DuoNeb treatment States that she is feeling better. This is likely a viral illness. She was given an albuterol inhaler prescription to use as needed. Return to the emergency room with any new or concerning symptoms. She is agreeable to this plan of care. Discharged home with family. Case discussed with Dr. Thompson. Was pt. sent in by a medical professional or institution ([facility], [facility] [employer], urgent care, hospital, or [facility]...) When possible be specific @ -[No] Did you speak to anyone other than the patient for history (EMS, parent, family, police, friend...)? What history was obtained from this source @ -[No] Did you review nursing and triage notes (agree or disagree)? Why? @ -[I reviewed and agree with nursing and triage notes] Were old charts reviewed (outside hosp., previous admission, EMS record, old EKG, old radiological studies, urgent care reports/EKG's, [facility] records)? Report findings @ -[No old charts were reviewed] Differential Diagnosis (chest pain, altered mental status, abdominal pain women, abdominal pain men, vaginal bleeding, weakness, fever, dyspnea, syncope, headache, dizziness, GI bleed, back pain, seizure, CVA, palpatations, mental health, musculoskeletal)? @ URI, pneumonia, otitis media, strep pharyngitis this is not an all inclusive list EKG interpreted by me (3pts min.). @ n/a X-rays interpreted by me (1pt min.). @ yes as above CT interpreted by me (1pt min.). @ -[None done] U/S interpreted by me (1pt. min.). @ -[None done] What testing was considered but not performed or refused? (CT, X-rays, U/S, labs)? Why? @ -[None] What meds were considered but not given or refused? Why? @ -[None] Did you discuss the management of the patient with other professionals (professionals i.e. [facility], [employer], lab, RT, psych nurse, manager social, plant facilities technician, teacher, driver's license reviewing officer, pillowcase sewer)? Give summary @ -[No] Was smoking cessation discussed for >3mins.? @ -[No] Was critical care preformed (if so, how long)? @ -[No] Were there social determinants of health that impacted care today? How? (Home lessness, low income, unemployed, alcoholism, drug addiction, transportation, low edu. Level, literacy, decrease access to med. care, halfway, rehab)? @ -[No] Was there de-escalation of care discussed even if they declined (Discuss DNR or withdrawal of care, Hospice)? DNR status @ -[No] What co-morbidities impacted this encounter? (DM, HTN, Smoking, COPD, CAD, Cancer, CVA, ARF, Chemo, Hep., AIDS, mental health diagnosis, sleep apnea, morbid obesity)? @ -[None] Was patient admitted / discharged? Hospital course, mention meds given and route, prescriptions, significant lab abnormalities, going to OR and other pertinent info. @ discharged Undiagnosed new problem with uncertain prognosis? @ -[No] Drug Therapy requiring intensive monitoring for toxicity (Heparin, Nitro, Insulin, Cardizem)? @ -[No] Were any procedures done? @ -[No] Diagnosis/symptom? @ -viral URI Acute, or Chronic, or Acute on Chronic? @ acute Uncomplicated (without systemic symptoms) or Complicated (systemic symptoms)? @ uncomplicated Side effects of treatment? @ -[No] Exacerbation, Progression, or Severe Exacerbation? @ -[No] Poses a threat to life or bodily function? How? (Chest pain, [place], PR, pneumonia, PE, COPD, DKA, ARF, appy, cholecystitis, CVA, Diverticulitis, Homicidal, Suicidal, threat to staff... and all critical care pts) @ -[No] - Lab Data Lab Results 02/14/23 Range/Units 17:45 Influenza Type A (PCR) Not Detected (Not Detectd) Influenza Type B (PCR) Not Detected (Not Detectd) RSV (PCR) Not Detected (Not Detectd) SARS-CoV-2 (PCR) Not Detected (Not Detectd) Disposition Clinical Impression: URI (upper respiratory infection) Disposition: HOME SELF-CARE Condition: Good Instructions (If sedation given, give patient instructions): Fever in Adults (ED), Upper Respiratory Infection (ED) Additional Instructions: Increase your fluid intake. Tylenol and Motrin as needed for fevers or discomfort. Use the albuterol inhaler 1-2 puffs every 4-6 hours as needed for wheeze or shortness of breath. Self quarantine until 24 hours without a fever. Follow-up with the primary care doctor on Friday. Return to the emergency room with any new or concerning symptoms. Prescriptions: Albuterol Inhaler [Ventolin Hfa Inhaler] 1 - 2 puff INHALATION Q6H PRN #1 unit PRN Reason: Wheezing Is patient prescribed a controlled substance at d/c from ED?: No Referrals: Otilio Webber MD [Primary Care Provider] - 1-2 days Time of Disposition: 20:22
[2023-02-14] MEDS ORDERED: DEXAMETHASONE SOD PHOSPHATE 10 MG/ML 1 ML VIAL IM STA (20:19)
[2023-02-14 20:39] VITALS: BP 108/59; PULSE 76; RESP 16; TEMP 99.2
== END 2023-02-14 21:14 | disposition home or self-care (01) ==
LOC: EC 17:08
DX: J06.9 Acute upper respiratory infection, unspecified (principal); Z20.822 Contact with and (suspected) exposure to COVID-19
CPT/HCPCS: 87636; 71046; 99284; 96372; J1100